=== PATIENT | female | born 1945 | race Caucasian/White ===

== ENCOUNTER 2020-10-09 14:57 | Inpatient (IN) | payer MEDICARE, OTHER ==
[~2020-10-09] VITALS: Ht 154.9 cm; Wt 54.9 kg
[~2020-10-09 14:57] MED LIST: ALLEGRA ALLERG180 MG PO; COREG 3.125M3.125 MG PO; ECOTRIN81 MG PO; FISH OIL 1,0001 EACH PO; FOLIC ACID 1 MG1 MG PO; GLUCOPHAGE1000 MG PO; GLUCOTROL 10 MG10 MG PO; IMDUR ER TAB 6060 MG PO; K-DUR TAB 10 M10 MEQ PO; LANTUS100 UNIT/1 SQ; LASIX40 MG PO; LIPITOR TAB 2020 MG PO; NEURONTIN 300300 MG PO; PLAVIX 75 MG TA75 MG PO; PROZAC20 MG PO; TESSALON PERLE100 MG PO; VENTOLIN HFA 66.7 GM INH; VITAMIN D21250 MCG PO; ZANTAC150 MG PO; [UNRECOGNIZED DRUG - OTHER] INH
[2020-10-09 15:46] LABS: RED BLOOD COUNT 4.65 M/UL (4.00-5.10); WHITE BLOOD COUNT 7.8 K/UL (4.5-11.0)
[2020-10-10 07:41] LABS: HEMOGLOBIN 10.4 gm/dl (12.3-15.3); RED BLOOD COUNT 3.74 M/UL (4.00-5.10)
[2020-10-10] MEDS ORDERED: VITAMIN D21250 MCG PO (16:48)
[2020-10-10] MEDS ORDERED: ISOSORBIDE MONO60 MG PO (16:48)
[2020-10-10] MEDS ORDERED: POTASSIUM CHLO10 ME1 PO (16:49)
[2020-10-10] MEDS ORDERED: CLOPIDOGREL75 MG PO (16:50)
[2020-10-10] MEDS ORDERED: PROZAC20 MG PO (16:50)
[2020-10-10] MEDS ORDERED: FOLIC ACID1 MG PO (16:51)
[2020-10-10] MEDS ORDERED: FUROSEMIDE40 MG PO (16:51)
[2020-10-10] MEDS ORDERED: METFORMIN HCL1000 MG PO (16:54)
[2020-10-10] MEDS ORDERED: CARVEDILOL3.125 MG PO (16:54)
[2020-10-10] MEDS ORDERED: PROAIR DIGIHAL90 MCG INH (16:57)
[2020-10-10] MEDS ORDERED: ASPIRIN EC81 MG PO (16:57)
[2020-10-10] MEDS ORDERED: LANTUS SOL100 UNIT/1 SQ (16:58)
[2020-10-11 05:22] LABS: HEMOGLOBIN 11.5 gm/dl (12.3-15.3); RED BLOOD COUNT 3.98 M/UL (4.00-5.10); WHITE BLOOD COUNT 11.4 K/UL (4.5-11.0)
[2020-10-11 09:13] LABS: HBSAG SCREEN Negative (Negative); HEP A AB, IGM Negative (Negative); HEP B CORE AB, IGM Negative (Negative); HEP C VIRUS AB <0.1 (0.0-0.9)
[2020-10-12 03:33] LABS: HEMOGLOBIN 11.4 gm/dl (12.3-15.3); RED BLOOD COUNT 3.95 M/UL (4.00-5.10); WHITE BLOOD COUNT 11.3 K/UL (4.5-11.0)
[2020-10-13 05:23] LABS: HEMOGLOBIN 13.1 gm/dl (12.3-15.3); WHITE BLOOD COUNT 9.9 K/UL (4.5-11.0)
[2020-10-13 05:27] LABS: RED BLOOD COUNT 4.49 M/UL (4.00-5.10)
[2020-10-14 03:11] LABS: HEMOGLOBIN 12.2 gm/dl (12.3-15.3); RED BLOOD COUNT 4.24 M/UL (4.00-5.10); WHITE BLOOD COUNT 9.5 K/UL (4.5-11.0)
[2020-10-15 05:04] LABS: RED BLOOD COUNT 4.3 M/UL (4.00-5.10); WHITE BLOOD COUNT 8.3 K/UL (4.5-11.0)
[2020-10-15 05:41] LABS: BUN/CREATININE RATIO 31 (0-10)
[2020-10-16 04:10] LABS: CREATININE, URINE 31.4 mg/dL (Not Estab.)
[2020-10-16 04:16] LABS: HEMOGLOBIN 11.8 gm/dl (12.3-15.3); RED BLOOD COUNT 4.26 M/UL (4.00-5.10); WHITE BLOOD COUNT 7.1 K/UL (4.5-11.0)
[2020-10-16 04:37] LABS: BUN/CREATININE RATIO 27 (0-10)
[2020-10-16] MEDS ORDERED: LOPRESSOR 50 MG50 MG PO (08:17)
[2020-10-16] MEDS ORDERED: FUROSEMIDE10 MG/1 M1 IV (08:17)
[2020-10-16] MEDS ORDERED: ALDACTONE 25MG25 MG PO (08:17)
[2020-10-16] MEDS ORDERED: FUROSEMIDE10 MG/1 M1 PO (09:44)
[2020-10-18 15:14] LABS: ALBUMIN 2.8 g/dL (2.9-4.4); ALPHA-1-GLOBULIN 0.3 g/dL (0.0-0.4); BETA GLOBULIN 0.6 g/dL (0.7-1.3); GAMMA GLOBULIN 1.1 g/dL (0.4-1.8); IMMUNOFIXATION RESULT, SERUM Comment: (.); IMMUNOGLOBULIN A, QN, SERUM 338 mg/dL (64-422); IMMUNOGLOBULIN G, QN, SERUM 1176 mg/dL (586-1602); IMMUNOGLOBULIN M, QN, SERUM 27 mg/dL (26-217); M-SPIKE Not Observed g/dL (Not Observed); PROTEIN, TOTAL, SERUM 5.8 g/dL (6.0-8.5)
== END 2020-10-16 11:40 | disposition home or self-care (01) | DRG 871 ==
LOC: ER1 14:57 → CDU 16:55 → CCU 16:55 → PROG CARE 16:55 → CCU 20:10 → PROG CARE 10-11 09:32
PROVIDERS: Emergency Medicine; Internal Medicine; Internal Medicine Nephrology; ADMIT Internal Medicine
PROC: 5A09457 Assistance with Respiratory Ventilation, 24-96 Consecutive Hours, Continuous Positive Airway Pressure (ICD-10-PCS; principal; 2020-10-09)
PROC: B24BZZZ Ultrasonography of Heart with Aorta (ICD-10-PCS; 2020-10-10)
DX: A41.9 Sepsis, unspecified organism (principal); J18.9 Pneumonia, unspecified organism; I50.23 Acute on chronic systolic (congestive) heart failure; E87.2 Acidosis; E87.1 Hypo-osmolality and hyponatremia; N17.9 Acute kidney failure, unspecified; J44.0 Chronic obstructive pulmonary disease with (acute) lower respiratory infection; R18.8 Other ascites; I13.0 Hypertensive heart and chronic kidney disease with heart failure and stage 1 through stage 4 chronic kidney disease, or unspecified chronic kidney disease; I48.20 Chronic atrial fibrillation, unspecified; I42.9 Cardiomyopathy, unspecified; Z66 Do not resuscitate; K76.1 Chronic passive congestion of liver; I27.20 Pulmonary hypertension, unspecified; I25.10 Atherosclerotic heart disease of native coronary artery without angina pectoris; E78.5 Hyperlipidemia, unspecified; N18.32 Chronic kidney disease, stage 3b; E11.22 Type 2 diabetes mellitus with diabetic chronic kidney disease; I08.1 Rheumatic disorders of both mitral and tricuspid valves; Z20.822 Contact with and (suspected) exposure to COVID-19; K59.00 Constipation, unspecified; E87.6 Hypokalemia; Z82.49 Family history of ischemic heart disease and other diseases of the circulatory system; Z83.3 Family history of diabetes mellitus; Z95.1 Presence of aortocoronary bypass graft; Z99.81 Dependence on supplemental oxygen; Z90.49 Acquired absence of other specified parts of digestive tract; Z98.51 Tubal ligation status; Z98.890 Other specified postprocedural states; Z79.82 Long term (current) use of aspirin; Z79.02 Long term (current) use of antithrombotics/antiplatelets; Z79.899 Other long term (current) drug therapy; Z87.891 Personal history of nicotine dependence; Z95.810 Presence of automatic (implantable) cardiac defibrillator; Z79.01 Long term (current) use of anticoagulants
CPT/HCPCS: ECHO; 36415; 36600; 71045; 71250; 76705; 80053; 80074; 80202; 80307; 81001; 82043; 82533; 82550; 82553; 82570; 82784; 82803; 82962; 83605; 83735; 83874; 83880; 84100; 84132; 84155; 84156; 84165; 84439; 84443; 84484; 85025; 85027; 85610; 85730; 86140; 86334; 87040; 87081; 87086; 93005; 93306; 94640; 94660; 94664; 94760; 96374; 96375; 97116-GP-CQ; 97162; 97530-GP-CQ; 99285; J0692; J1650; J1940; J2185; J2270; J2405; J3370; J7030; J7070; Q9967; U0002